=== PATIENT | female | born 1970 | race Caucasian/White ===

== ENCOUNTER 2017-07-12 14:46 | Emergency (ER) | payer OTHER ==
--- NOTE | 2017-07-12 16:00 | EDM.PDOC ---
ED HPI GENERAL MEDICAL PROBLEM - General Chief Complaint: ENT Problem Stated Complaint: RT EAR HURTS Time Seen by Provider: 07/12/17 14:53 Source of Information: Reports: Patient History Limitations: Reports: No Limitations - History of Present Illness INITIAL COMMENTS - FREE TEXT/NARRATIVE: HISTORY AND PHYSICAL: History of present illness: Patient is a 46-year-old female presents to the emergency room with complaints of right sided facial pain. Reports that she has a cracked tooth which occurred approximately a week ago has been causing increased pain which now radiates to the maxillary sinus area and right ear. Denies any fever, chills, chest pain, shortness of breath or throat pain. States she does have a local dentist in town but has not contacted them yet. Review of systems: As per history of present illness and below otherwise all systems reviewed and negative. Past medical history: As per history of present illness and as reviewed below otherwise noncontributory. Surgical history: As per history of present illness and as reviewed below otherwise noncontributory. Social history: No reported history of drug or alcohol abuse. Family history: As per history of present illness and as reviewed below otherwise noncontributory. Physical exam: Gen.: Nontoxic appearing 46-year-old female. Able to speak in full sentences without shortness of breath. Alert and oriented HEENT: Atraumatic, normocephalic, pupils reactive, negative for conjunctival pallor or scleral icterus, mucous membranes moist, throat clear, neck supple, nontender, trachea midline. Tympanic membranes clear bilaterally. Tooth #1 through #3 showed dental caries along with erythema to the gumline which is tender to touch. Lungs: Clear to auscultation, breath sounds equal bilaterally, chest nontender. Heart: S1S2, regular rate and rhythm Abdomen: Soft, nondistended, nontender. Negative for masses. Negative for costovertebral tenderness. Pelvis: Stable nontender. Genitourinary: Deferred. Rectal: Deferred. Extremities: Atraumatic. Neurovascular unremarkable. Neuro: Awake, alert, oriented. Cranial nerves II through XII unremarkable. Cerebellum unremarkable. Motor and sensory unremarkable throughout. Exam nonfocal. Discussed with patient the importance of her to follow-up with her primary dentist. Placement on antibiotic provide her with dental balls. Patient voices understanding and is agreeable to plan of care. Diagnostics: [] Therapeutics: Dental balls Impression: Dental abscess Definitive disposition and diagnosis as appropriate pending reevaluation and review of above. Duration: Week(s): (1) Location: Reports: Other (Right upper dental) ED ROS GENERAL - Review of Systems Review Of Systems: ROS reveals no pertinent complaints other than HPI. ED EXAM, GENERAL - Physical Exam Exam: See Below (See dictation) Departure - Departure Time of Disposition: 16:01 Disposition: Home, Self-Care 01 Condition: Good Clinical Impression: Dental abscess - Discharge Information Referrals: Mic Bar MD [Primary Care Provider] - Additional Instructions: The following information is given to patients seen in the emergency department who are being discharged to home. This information is to outline your options for follow-up care. We provide all patients seen in our emergency department with a follow-up referral. The need for follow-up, as well as the timing and circumstances, are variable depending upon the specifics of your emergency department visit. If you don't have a primary care physician on staff, we will provide you with a referral. We always advise you to contact your personal physician following an emergency department visit to inform them of the circumstance of the visit and for follow-up with them and/or the need for any referrals to a consulting specialist. The emergency department will also refer you to a specialist when appropriate. This referral assures that you have the opportunity for followup care with a specialist. All of these measure are taken in an effort to provide you with optimal care, which includes your followup. Under all circumstances we always encourage you to contact your private physician who remains a resource for coordinating your care. When calling for followup care, please make the office aware that this follow-up is from your recent emergency room visit. If for any reason you are refused follow-up, please contact the [facility] emergency department at and ask to speak to the emergency department charge nurse. [facility] Primary care- Internal Medicine and Family [address] [address] 1. Please follow-up with your dentist as we discussed. 2. Take your prescribed antibiotics as directed. May take an anti-inflammatory during the daytime and use the tramadol that has been prescribed at nighttime. May use the "dental balls" that we have provided to for pain relief as desired. Please do not swallow these. 3. Follow-up with primary care provider in the next 1-2 days. May return to the ED as needed as discussed
[2017-07-12] MEDS ORDERED: Benzocaine 20% Topical Spray UD MUCMEM ONE (16:02)
[2017-07-12] MEDS ORDERED: Lidocaine 2% Viscous Solution 15 ML Cup PO ONE (16:02)
[2017-07-12] MEDS ORDERED: Ketorolac 60 MG/2 ML SDV IM ONE (16:08)
[2017-07-12 16:41] VITALS: BP 230/112
== END 2017-07-12 16:42 | disposition home or self-care (01) ==
LOC: MW.ED 14:46
DX: K04.7 Periapical abscess without sinus (principal); K02.9 Dental caries, unspecified
CPT/HCPCS: 96372; 99283; A9270; J1885; 99282

== ENCOUNTER 2021-06-24 18:40 | Emergency (ER) | payer MEDICAID ==
[2021-06-24 19:40] VITALS: BP 145/98; PULSE 69
--- NOTE | 2021-06-24 19:41 | EDM.PDOC ---
ED HPI GENERAL MEDICAL PROBLEM - General Chief Complaint: Lower Extremity Injury/Pain Stated Complaint: RT KNEE PAIN Time Seen by Provider: 06/24/21 19:37 Source of Information: Reports: Patient History Limitations: Reports: No Limitations - History of Present Illness INITIAL COMMENTS - FREE TEXT/NARRATIVE: HISTORY AND PHYSICAL: History of present illness: Patient is a 50-year-old female who presents to the emergency room with complaints of right knee pain. She states she was in the kitchen and started to "run towards the bathroom" when she heard a pop of the right knee. She now has discomfort with weightbearing and range of motion. She denies hitting her head or having any loss of consciousness. Denies any other extremity involvement. Patient denies any fever, chills, headache, change in vision, syncope or near syncope. Denies any chest pain, back pain, shortness of breath or cough. Denies any GI or symptoms. Denies any numbness, tingling, saddle paresthesias. Review of systems: As per history of present illness and below otherwise all systems reviewed and negative. Past medical history: As per history of present illness and as reviewed below otherwise noncontributory. Surgical history: As per history of present illness and as reviewed below otherwise noncontributory. Social history: See social history for further information Family history: As per history of present illness and as reviewed below otherwise noncontributory. Physical exam: General: Well developed and well nourished 50-year-old female. Alert and orientated x 3. Nontoxic in appearance and in no acute distress. Vital signs are stable and have been reviewed by me. Nursing notes were reviewed. HEENT: Atraumatic, normocephalic, pupils equal and reactive bilaterally, neg ative for conjunctival pallor or scleral icterus, mucous membranes moist, TMs normal bilaterally, throat clear, neck supple, nontender, trachea midline. No drooling or trismus noted. No meningeal signs. No hot potato voice noted. Lungs: Clear to auscultation bilaterally. No wheezes, rales, or rhonchi. Chest nontender. Normal work of breathing, no accessory muscles used. Heart: S1S2, regular rate and rhythm without overt murmur, gallops, or rubs. No JVD. No peripheral edema Abdomen: Soft, nondistended, nontender. Skin: Intact, warm, dry. No lesions or rashes noted. Hematologic: No petechiae or purpra. Mucosa appropriate color and normal nail bed color and refill. Extremities: Moves all extremities per self without difficulty or deficits, generalized anterior right knee pain with palpation. No obvious injury noted. Negative for cords or calf pain. Strong pedal and pretibial pulses. Cap refill less than 3 seconds. Neurovascular unremarkable. Neuro: Awake, alert, oriented. Cranial nerves II through XII unremarkable. Cerebellum unremarkable. Motor and sensory unremarkable throughout. Exam nonfocal. Psychiatric: Mood and affect are appropriate. Normal thought process. Answering questions appropriately. Please note that the patient was seen and evaluated during the 2019 SARS-CoV-2 novel coronavirus pandemic period. Community viral transmission is ongoing at time of this encounter and the emergency department is operating under pandemic response procedures. Medical Decision Making: Patient is a 50-year-old female who presents to the emergency room with complaints of right knee pain. She states she was running towards the bathroom when she heard and felt a pop of the right knee. Immediately after she had pain with weightbearing and range of motion. We will get an x-ray at this time. X-ray is unremarkable. Patient states she has crutches at home. We will give her an Hair wrap for compression and comfort. Patient to wear this over the next few days. I have talked with the patient about today's findings, in addition to providing specific details for plan of care. Reassessment at the time of disposition demonstrates that the patient is in no acute distress. The patient is stable for discharge, counseling was provided and we discussed in great detail signs and symptoms that would prompt them to return to the Emergency Department. Medication, follow up and supportive care measures were reviewed and discussed. Voices understanding and is agreeable to plan of care. Denies any further questions or concerns at this time. Diagnostics: X-ray Therapeutics: Hair wrap Prescription: Tramadol Impression: Knee sprain, right Plan: 1. You were evaluated today on an emergent basis. Your x-ray shows no fractures. Rest, ice, elevate the extremity as able. Use the crutches and Hair wrap over the next 1 to 3 days to be nonweightbearing. 2. You can alternate Tylenol and ibuprofen as needed for pain and fever management. 3. We encourage you to follow up with your primary care provider and/or recommended specialist in the next few days for re-evaluation and further care/management. 4. If your symptoms should worsen, new symptoms develop or any of the signs and symptoms we discussed should arise please return to the emergency room or call 911 (if needed). Definitive disposition and diagnosis as appropriate pending reevaluation and review of above. right knee Pain Score (Numeric/FACES): 0 - Related Data Allergies Allergy/AdvReac Type Severity Reaction Status Date / Time No Known Allergies Allergy Verified 06/24/21 19:40 Home Meds: Home Meds Levothyroxine [Synthroid] 225 mcg PO DAILY 07/12/17 [History] Albuterol Sulfate [Proair Hfa] 1 - 2 puff INH Q4HR PRN 06/24/21 [History] Clobetasol [Clobetasol 0.05%] 1 dose TOP PRN 06/24/21 [History] Glycopyrrolate/Formoterol Fum [Bevespi Aerosphere Inhaler] 1 puff INH BID 06/24/21 [History] Losartan [Cozaar] 100 mg PO DAILY 06/24/21 [History] Meloxicam 7.5 mg PO BID 06/24/21 [History] Omeprazole 20 mg PO DAILY 06/24/21 [History] amLODIPine [Norvasc] 5 mg PO BEDTIME 06/24/21 [History] atorvaSTATin [Lipitor] 40 mg PO DAILY 06/24/21 [History] hydroCHLOROthiazide [Hydrochlorothiazide] 25 mg PO DAILY 06/24/21 [History] traMADol [Ultram] 50 mg PO Q4H PRN #15 tab 06/24/21 [Rx] Past Medical History Cardiovascular History: Reports: Hypertension [employer]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 ED EXAM, GENERAL - Physical Exam Exam: See Below (See dictation) Course - Vital Signs Last Recorded V/S: Last Vital Signs Temp 96.5 F L 06/24/21 19:38 Pulse 69 06/24/21 19:38 Resp 18 06/24/21 19:38 BP 145/98 H 06/24/21 19:38 Pulse Ox 99 06/24/21 19:38 - Orders/Labs/Meds Orders: Active Orders 24 hr Category Date Time Status DME for Discharge [COMM] Stat Oth 06/24/21 20:37 Ordered Departure - Departure Time of Disposition: 20:42 Disposition: Home, Self-Care 01 Clinical Impression: Sprain, knee Qualifiers: Encounter type: initial encounter Involved ligament of knee: unspecified ligament Laterality: right Qualified Code(s): S83.91XA - Sprain of unspecified site of right knee, initial encounter - Discharge Information Prescriptions: traMADol [Ultram] 50 mg PO Q4H PRN #15 tab PRN Reason: Pain Instructions: Knee Sprain, Adult, [id number] Referrals: Rayray Murray MD [Primary Care Provider] - Forms: ED Department Discharge Additional Instructions: The following information is given to patients seen in the emergency department who are being discharged to home. This information is to outline your options for follow-up care. We provide all patients seen in our emergency department with a follow-up referral. The need for follow-up, as well as the timing and circumstances, are variable depending upon the specifics of your emergency department visit. If you don't have a primary care physician on staff, we will provide you with a referral. We always advise you to contact your personal physician following an emergency department visit to inform them of the circumstance of the visit and for follow-up with them and/or the need for any referrals to a consulting specialist. The emergency department will also refer you to a specialist when appropriate. This referral assures that you have the opportunity for follow-up care with a specialist. All of these measure are taken in an effort to provide you with optimal care, which includes your follow-up. Under all circumstances we always encourage you to contact your private physician who remains a resource for coordinating your care. When calling for follow-up care, please make the office aware that this follow-up is from your recent emergency room visit. If for any reason you are refused follow-up, please contact the [facility] Emergency Department at and asked to speak to the emergency department charge nurse. [facility] [address] [place] [address] [facility] [address] [place] [address] Thank you for choosing the [facility] emergency department in [place] for your medical needs today. It was a pleasure caring for you. Today you were seen in the emergency department for knee injury. 1. You were evaluated today on an emergent basis. Your x-ray shows no fractures. Rest, ice, elevate the extremity as able. Use the crutches and Hair wrap over the next 1 to 3 days to be nonweightbearing. 2. You can alternate Tylenol and ibuprofen as needed for pain and fever management. 3. We encourage you to follow up with your primary care provider and/or re commended specialist in the next few days for re-evaluation and further care/management. 4. If your symptoms should worsen, new symptoms develop or any of the signs and symptoms we discussed should arise please return to the emergency room or call 911 (if needed). Sepsis Event Note (ED) - Focused Exam Vital Signs: Vital Signs Temp Pulse Resp BP Pulse Ox 06/24/21 19:38 96.5 F L 69 18 145/98 H 99 - My Orders Last 24 Hours: My Active Orders 06/24/21 20:37 DME for Discharge [COMM] Stat - Assessment/Plan Last 24 Hours: My Active Orders 06/24/21 20:37 DME for Discharge [COMM] Stat
--- NOTE | 2021-06-24 20:22 | CR ---
INDICATION: Pain after twisting motion. COMPARISON: None available. TECHNIQUE: The right knee was examined with AP, lateral, and sunrise views for a total of three views. FINDINGS: There is no sign of fracture or dislocation. The medial and lateral compartments are normal in height. There is no sign of a joint effusion. No soft tissue abnormality is seen. IMPRESSION: Normal right knee. Dictated by Gera Mcguire MD @ 06/24/2021 8:21:[address] Gera Mcguire @ Jun 24 2021 8:21PM
== END 2021-06-24 20:58 | disposition home or self-care (01) ==
LOC: MW.ED 18:40
DX: S83.91XA Sprain of unspecified site of right knee, initial encounter (principal); E03.9 Hypothyroidism, unspecified; I10 Essential (primary) hypertension; Z79.899 Other long term (current) drug therapy; X50.0XXA Overexertion from strenuous movement or load, initial encounter; Y92.002 Bathroom of unspecified non-institutional (private) residence as the place of occurrence of the external cause
CPT/HCPCS: 73562-26-RT; 73562-RT; 99283-25